=== PATIENT | male | born 1985 | race American Indian/Alaskan Native ===

== ENCOUNTER 2017-03-03 08:31 | Emergency (ER) | payer MEDICAID ==
[2017-03-03] MEDS ORDERED: REGLAN IV ONE (11:45)
[2017-03-03] MEDS ORDERED: BENADRYL IV ONE (11:46)
[2017-03-03] MEDS ORDERED: NACL 0.9% 500 ML 500 ML IV ONE (11:46)
--- NOTE | 2017-03-03 11:48 | Emergency Department Report ---
ED Headache HPI - General Chief Complaint: Headache Stated Complaint: HEADACHE Time Seen by Provider: 03/03/17 11:22 - History of Present Illness Initial Comments: 31-year-old male past medical history migraines presents with complaint of acute on chronic migraine headache. Patient states he has had intermittent headaches for years and has not followed up with a neurologist or a primary care doctor in quite some time cannot specify how long. States he has frontal throbbing headache which has gradually come on over the last several days approximately 4-5 days. Denies any direct head trauma no fever no chills no photophobia and no phonophobia. States he has had worse headaches in the past. Denies nausea or vomiting dysuria abdominal pain chest pain palpitations or shortness of breath. On clinical exam is cooperative awake alert and oriented 3 does not appear to be in acute distress. Quality: moderate Head Injury Location: frontal Recent Head Trauma: frequent headaches, chronic headaches Allergies/Adverse Reactions: Allergies No Known Allergies Allergy (Verified 03/03/17 08:48) Home Medications: Ambulatory Orders Naproxen [Naprosyn] 500 mg PO BID PRN #25 tablet 03/03/17 ED Review of Systems ROS: Stated complaint: HEADACHE Other details as noted in HPI Constitutional: denies: chills, fever Eyes: denies: eye pain, eye discharge, vision change ENT: denies: ear pain, throat pain Respiratory: denies: cough, shortness of breath, wheezing Cardiovascular: denies: chest pain, palpitations Endocrine: no symptoms reported Gastrointestinal: denies: abdominal pain, nausea, diarrhea Genitourinary: denies: urgency, dysuria Musculoskeletal: denies: back pain, joint swelling, arthralgia Skin: denies: rash, lesions Neurological: headache. denies: weakness, paresthesias Psychiatric: denies: anxiety, depression Hematological/Lymphatic: denies: easy bleeding, easy bruising ED Past Medical Hx - Past Medical History Previous Medical History?: No - Surgical History Past Surgical History?: No - Social History Smoking Status: Current Every Day Smoker Substance Use Type: Alcohol - Medications Home Medications: Home Medications Medication Instructions Recorded Confirmed Last Taken Type Naproxen [Naprosyn] 500 mg PO BID PRN #25 tablet 03/03/17 Unknown Rx ED Physical Exam - General Limitations: No Limitations General appearance: alert, in no apparent distress - Head Head exam: Present: atraumatic, normocephalic - Eye Eye exam: Present: normal appearance, PERRL, EOMI - ENT ENT exam: Present: mucous membranes moist - Neck Neck exam: Present: normal inspection, full ROM - Respiratory Respiratory exam: Present: normal lung sounds bilaterally. Absent: respiratory distress - Cardiovascular Cardiovascular Exam: Present: regular rate, normal rhythm. Absent: systolic murmur, diastolic murmur, rubs, gallop - GI/Abdominal GI/Abdominal exam: Present: soft, normal bowel sounds - Rectal Rectal exam: Present: deferred - Extremities Exam Extremities exam: Present: normal inspection - Back Exam Back exam: Present: normal inspection - Neurological Exam Neurological exam: Present: alert, oriented X3, CN II-XII intact, normal gait - Expanded Neurological Exam Expanded Patient oriented to: Present: person, place, time Cranial nerves: EOM's Intact: Normal, Facial Sensation: Normal Cerebellar function: Finger to Nose: Normal, Heel to Kerr: Normal, Romberg: Normal Sensory exam: Upper Extremity Light Touch: Normal, Lower Extremity Light Touch: Normal Motor strength exam: RUE: 5, LUE: 5, RLE: 5, LLE: 5 DTR: bicep (R): 3+, bicep (L): 3+, tricep (R): 3+, tricep (L): 3+, knee (R): 3+ , knee (L): 3+, ankle (R): 3+, ankle (L): 3+ Best Eye Response (Chitra): (4) open spontaneously Best Motor Response ([place]): (6) obeys commands Best Verbal Response ([place]): (5) oriented Chitra Total: 15 - Psychiatric Psychiatric exam: Present: normal affect, normal mood - Skin Skin exam: Present: warm, dry, intact, normal color. Absent: rash ED Course Vital Signs 03/03/17 03/03/17 08:48 13:12 Temperature 97.9 F 98.3 F Pulse Rate 72 61 Respiratory 18 16 Rate Blood Pressure 117/72 Blood Pressure 117/78 [Left] O2 Sat by Pulse 97 99 Oximetry ED Medical Decision Making - Lab Data Result diagrams: 03/03/17 11:49 03/03/17 11:49 - Medical Decision Making A/P: Migraine headache acute on chronic 1- states this is not the worse headache of his life 2-significant reduction of headache with one dose of Reglan 3-CAT scan unremarkable, BMP and CBC unremarkable 4- patient has a completely intact neurological exam cN1 through 12 grossly intact patient is ambulatory and fully lucid awake alert and oriented 3. No signs of meningismus. Will follow-up with primary care and outpatient neurology Critical care attestation.: If time is entered above; I have spent that time in minutes in the direct care of this critically ill patient, excluding procedure time. ED Disposition Clinical Impression: Migraine headache Qualifiers: Migraine type: with aura Status migrainosus presence: without status migrainosus Intractability: not intractable Qualified Code(s): G43.109 - Migraine with aura, not intractable, without status migrainosus Disposition: TO HOME OR SELFCARE Is pt being admited?: No Does the pt Need Aspirin: No Condition: Stable Instructions: Migraine Headache (ED) Prescriptions: Naproxen [Naprosyn] 500 mg PO BID PRN #25 tablet PRN Reason: Headache Referrals: MARISA BARKLEY MD [Staff Physician] - 3-5 Days SUMIT THOMAS MD [Staff Physician] - 3-5 Days Forms: Work/School Release Form(ED) Time of Disposition: 13:25
[2017-03-03 12:21] LABS: Hematocrit 43.9 % (35.5-45.6); Hemoglobin 14.7 gm/dl (11.8-15.2); Mean Corpuscular HGB Conc 34 % (32-34); Mean Corpuscular Hemoglobin 29 pg (28-32); Mean Corpuscular Volume 85 fl (84-94); Platelet Count 238 K/mm3 (140-440); Red Blood Count 5.15 M/mm3 (3.65-5.03); Red Cell Distribution Width 14.4 % (13.2-15.2); White Blood Count 4.8 K/mm3 (4.5-11.0)
[2017-03-03 12:29] LABS: Anion Gap 18 mmol/L; BUN/Creatinine Ratio 17; Blood Urea Nitrogen 12 mg/dL (9-20); Calcium 8.4 mg/dL (8.4-10.2); Carbon Dioxide 24 mmol/L (22-30); Chloride 104.5 mmol/L (98-107); Glucose 71 mg/dL (75-100); Potassium 4.2 mmol/L (3.6-5.0); Sodium 142 mmol/L (137-145)
--- NOTE | 2017-03-03 12:32 | Cat Scan Report ---
CT HEAD WITHOUT CONTRAST: HISTORY: Headache. Serial contiguous axial images were obtained through the cranium. Intravenous contrast material was not administered. The ventricles are normal in size and appearance. There is no mass effect or midline shift. No areas of abnormally increased or decreased attenuation are seen. No mass lesion is seen. The mastoid air cells and visualized portions of the sinuses are normal. IMPRESSION: Cranial CT scan within normal limits.
[2017-03-03 13:14] VITALS: BP 117/78
[2017-03-03 13:31] LABS: Basophils % (Manual) 0 % (0.0-1.8); Blastocytes % (Manual) 0 %; Diff Status Complete; RBC Morphology Normal
== END 2017-03-03 13:48 | disposition home or self-care (01) ==
LOC: ED 08:31
DX: G43.109 Migraine with aura, not intractable, without status migrainosus (principal); F17.200 Nicotine dependence, unspecified, uncomplicated
CPT/HCPCS: 36415; 70450; 80048; 85007; 85025; 96374; 96375; 99284; J1200; J2765; J7040

== ENCOUNTER 2019-08-07 09:35 | Emergency (ER) | payer SELFPAY ==
[2019-08-07 10:14] VITALS: BP 133/90
--- NOTE | 2019-08-07 10:22 | Emergency Department Report ---
Chief Complaint: Upper Respiratory Infection Stated Complaint: TROUBLE BREATHING WHILE SLEEPING - HPI History of Present Illness: 34 y/o male comes in of having 1 episode of sob during the night time 1 last night. No coughing Sob TRACE. No PMH - Exam Vital Signs: Vital Signs 08/07/19 10:12 Temperature 99.3 F Pulse Rate 104 H Respiratory 18 Rate Blood Pressure 133/90 O2 Sat by Pulse 100 Oximetry Physical Exam: AxO times 3 NAD ambulatory without difficulties. MSE screening note: Focused history and physical exam performed. Due to findings the following was ordered: 34 y/o male comes in of having 1 episode of sob during the night time 1 last night. No coughing Sob TRACE. No PMH Recommend to follow up with a PCP to discuss possible sleep study. ED Disposition for MSE Disposition: MED SCREENING EXAM-LEFT Is pt being admited?: No Does the pt Need Aspirin: No Condition: Stable Additional Instructions: Follow up at a PCP for a possible work up for sleep apnea. Referrals: RASHAAD NOONAN MD [Staff Physician] - 3-5 Days Forms: Work/School Release Form(ED)
== END 2019-08-07 10:39 | disposition left against medical advice (07) ==
LOC: ED 09:35
DX: R06.02 Shortness of breath (principal); Z53.21 Procedure and treatment not carried out due to patient leaving prior to being seen by health care provider

== ENCOUNTER 2021-01-07 13:43 | Emergency (ER) | payer OTHER ==
[2021-01-07 14:51] VITALS: BP 114/84
[2021-01-07] MEDS ORDERED: TETANUS,DIPH,PERTUSS(ACELL) VACCINE 0.5 ML SYRINGE IM ONE (14:54)
--- NOTE | 2021-01-07 15:26 | XRay Report ---
XR foot 3+V RT INDICATION / CLINICAL INFORMATION: injury. COMPARISON: None available. FINDINGS: BONES/JOINT(S): No acute fracture or subluxation. No significant degenerative changes. SOFT TISSUES: No significant abnormality. ADDITIONAL FINDINGS: None. Signer Name: Yobany Ulrich MD Signed: 01/07/2021 3:21 PM Workstation Name: [id number]
--- NOTE | 2021-01-07 15:58 | Emergency Department Report ---
ED Lower Extremity HPI - General Chief Complaint: Extremity Injury, Lower Stated Complaint: something heavy fell on toes left foot Source: patient Mode of arrival: Ambulatory Limitations: No Limitations - History of Present Illness Initial Comments: 35-year-old -[place] male presents to the emergency room for right foot second toe injury. Patient states that he was messing with a electric power darin when it ran over his foot. Patient is not up-to-date on his tetanus vaccination. Patient has not been Covid vaccinated. Patient has no past medical history. -: This afternoon Injury: Toes: Right (Second toe) Type of Injury: blunt Place: work Severity: severe Severity scale (0 -10): 7 Improves With: immobilization Worsens With: weight bearing, movement, palpation Associated Symptoms: swelling, able to partially bear weight - Related Data Previous Rx's Medication Instructions Recorded Last Taken Type Naproxen [Naprosyn] 500 mg PO BID PRN #25 tablet 03/03/17 Unknown Rx cephALEXin [Keflex] 500 mg PO Q8HR 7 Days #21 cap 01/07/21 Unknown Rx traMADoL [Ultram 50 MG tab] 50 mg PO Q6HR PRN #12 tablet 01/07/21 Unknown Rx Allergies Allergy/AdvReac Type Severity Reaction Status Date / Time No Known Allergies Allergy Verified 03/03/17 08:48 ED Review of Systems ROS: Stated complaint: something heavy fell on toes left foot Other details as noted in HPI Comment: All other systems reviewed and negative ED Past Medical Hx - Past Medical History Previous Medical History?: No - Surgical History Past Surgical History?: No - Social History Smoking Status: Never Smoker - Medications Home Medications: Home Medications Medication Instructions Recorded Confirmed Last Taken Type Naproxen [Naprosyn] 500 mg PO BID PRN #25 tablet 03/03/17 Unknown Rx cephALEXin [Keflex] 500 mg PO Q8HR 7 Days #21 cap 01/07/21 Unknown Rx traMADoL [Ultram 50 MG tab] 50 mg PO Q6HR PRN #12 tablet 01/07/21 Unknown Rx ED Physical Exam - General Limitations: No Limitations General appearance: alert, in no apparent distress - Head Head exam: Present: atraumatic, normocephalic - Eye Eye exam: Present: normal appearance - ENT ENT exam: Present: normal exam, normal external ear exam - Neck Neck exam: Present: normal inspection, full ROM - Respiratory Respiratory exam: Absent: accessory muscle use - Cardiovascular Cardiovascular Exam: Present: regular rate - Back Exam Back exam: Present: normal inspection - Neurological Exam Neurological exam: Present: alert, oriented X3 - Psychiatric Psychiatric exam: Present: normal affect, normal mood - Expanded Skin Exam Expanded Type of lesion: Present: laceration Distribution of rash: RLE (Right second toe nailbed laceration) Description of rash: Present: tenderness, swelling ED Course Vital Signs 01/07/21 14:49 Temperature 98.3 F Pulse Rate 67 Respiratory 18 Rate Blood Pressure 114/84 [Right] O2 Sat by Pulse 100 Oximetry - Laceration /Wound Repair Right Toe Wound Location: lower extremity (Right second toe nail) Wound Length (cm): 1 Wound's Depth, Shape: into muscle, linear, irregular Wound Explored: clean Irrigated w/ Saline (ccs): 500 Betadine Prep?: Yes Anesthesia: 1% Lidocaine Volume Anesthetic (ccs): 3 Wound Debrided: minimal Wound Repaired With: sutures Suture Size/Type: 3:0, proline Number of Sutures: 1 (Sutured nailbed) Sterile Dressing Applied?: Yes Progress: Tolerated well ED Lower Extremity MDM - Radiology Data Radiology results: report reviewed [facility] [address] [place] [address] XRay Report Signed Patient: JF BAILEY JR MR#: [id number] : 1985 Acct:[id number] Age/Sex: 35 / M ADM Date: 01/07/21 Loc: ED Attending Dr: Ordering Physician: BARBARA ARZOLA Date of Service: 01/07/21 Procedure(s): XR foot 3+V RT Accession Number(s): [id number] cc: BARBARA ARZOLA Fluoro Time In Minutes: XR foot 3+V RT INDICATION / CLINICAL INFORMATION: injury. COMPARISON: None available. FINDINGS: BONES/JOINT(S): No acute fracture or subluxation. No significant degenerative changes. SOFT TISSUES: No significant abnormality. ADDITIONAL FINDINGS: None. Signer Name: Yobany Ulrich MD Signed: 01/07/2021 3:21 PM Workstation Name: [id number] Transcribed By: LENNY Dictated By: Yobany Ulrich MD Electronically Authenticated By: Yobany Ulrich MD Signed Date/Time: 01/07/211520 DD/ 20 TD/TT: Print - Medical Decision Making 35-year-old -[place] male presents to the emergency room for right foot second toe injury. Patient states that he was messing with a electric power darin when it ran over his foot. Patient is not up-to-date on his tetanus vaccination. Patient has not been Covid vaccinated. Patient has no past medical history. X-rays negative for any acute abnormalities or fractures Critical care attestation.: If time is entered above; I have spent that time in minutes in the direct care of this critically ill patient, excluding procedure time. ED Disposition Clinical Impression: Injury of right toe Qualifiers: Encounter type: initial encounter Qualified Code(s): S99.921A - Unspecified injury of right foot, initial encounter Nailbed laceration, toe Qualifiers: Encounter type: initial encounter Qualified Code(s): S91.219A - Laceration without foreign body of unspecified toe(s) with damage to nail, initial encounter Disposition: 01 HOME / SELF CARE / HOMELESS Is pt being admited?: No Does the pt Need Aspirin: No Condition: Stable Instructions: Laceration Care, Adult, [id number] Additional Instructions: Please complete antibiotics pain medication as needed. Return back to the ER in 1 week to 10 days to have suture removed. Take pain medication as needed do not operate heavy machinery while taking pain medicine. Prescriptions: cephALEXin [Keflex] 500 mg PO Q8HR 7 Days #21 cap traMADoL [Ultram 50 MG tab] 50 mg PO Q6HR PRN #12 tablet PRN Reason: Pain Referrals: PRIMARY CAREMD [Primary Care Provider] - 3-5 Days Time of Disposition: 17:44
[2021-01-07] MEDS ORDERED: LIDOCAINE-MPF (1%) 10 MG/1 ML VIAL 5 ML INFILTRATI ONE (16:10)
[2021-01-07] MEDS ORDERED: HYDROcodone/ACETAMINOPHEN 7.5-325MG TAB PO ONE (16:10)
== END 2021-01-07 18:18 | disposition home or self-care (01) ==
LOC: ED 13:43
DX: S91.214A Laceration without foreign body of right lesser toe(s) with damage to nail, initial encounter (principal); W22.8XXA Striking against or struck by other objects, initial encounter; Y93.89 Activity, other specified; Y92.89 Other specified places as the place of occurrence of the external cause; Y99.8 Other external cause status
CPT/HCPCS: 99283

== ENCOUNTER 2021-01-15 07:19 | Emergency (ER) | payer OTHER ==
[2021-01-15 08:05] VITALS: BP 129/74
--- NOTE | 2021-01-15 08:39 | Emergency Department Report ---
Suture/Staple Removal - HPI Chief Complaint: Laceration/Recheck/Suture Stated Complaint: STITCHES REMOVAL Time Seen by Provider: 01/15/21 08:37 When Sutures or [place] Placed: 8-10 Days Ago Wound Location: right middle toe ED Review of Systems ROS: Stated complaint: STITCHES REMOVAL Other details as noted in HPI Comment: All other systems reviewed and negative ED Past Medical Hx - Past Medical History Previous Medical History?: No - Social History Smoking Status: Never Smoker - Medications Home Medications: Home Medications Medication Instructions Recorded Confirmed Last Taken Type Naproxen [Naprosyn] 500 mg PO BID PRN #25 tablet 03/03/17 Unknown Rx cephALEXin [Keflex] 500 mg PO Q8HR 7 Days #21 cap 01/07/21 Unknown Rx traMADoL [Ultram 50 MG tab] 50 mg PO Q6HR PRN #12 tablet 01/07/21 Unknown Rx Suture Removal Exam - Exam General: Vital signs noted. No distress. Alert and acting appropriately. Wound: No Pathologic Erythema, No Tenderness, No Drainage, No Pus, No Wound Dehiscence Other Systems: All other systems reviewed and are unremarkable. ED Course Vital Signs 01/15/21 08:05 Temperature 98 F Pulse Rate 56 L Respiratory 16 Rate Blood Pressure 129/74 [Right] O2 Sat by Pulse 98 Oximetry ED Recheck MDM - Differential Diagnosis Suture/Staple Removal Critical care attestation.: If time is entered above; I have spent that time in minutes in the direct care of this critically ill patient, excluding procedure time. ED Disposition Clinical Impression: Injury of right toe, Visit for suture removal Disposition: 01 HOME / SELF CARE / HOMELESS Is pt being admited?: No Does the pt Need Aspirin: No Condition: Stable Additional Instructions: Keep wound clean and dry. Place Band-Aid. Possible nail will fall off. Referrals: PRIMARY CARE, [Primary Care Provider] - 3-5 Days Time of Disposition: 08:39
== END 2021-01-15 09:12 | disposition home or self-care (01) ==
LOC: ED 07:19
DX: S91.119D Laceration without foreign body of unspecified toe without damage to nail, subsequent encounter (principal); X58.XXXD Exposure to other specified factors, subsequent encounter